=== PATIENT | male | born 1980 | race Caucasian/White ===

== ENCOUNTER 2016-10-30 13:29 | Inpatient (IN) | payer OTHER ==
[2016-10-30 14:22] LABS: HEMOGLOBIN 18.1 gm/dl (14.0-17.5); RED BLOOD COUNT 5.95 M/UL (4.20-5.50); WHITE BLOOD COUNT 11.9 K/UL (4.5-11.0)
[2016-10-31 06:47] LABS: HEMOGLOBIN 16.9 gm/dl (14.0-17.5); RED BLOOD COUNT 5.56 M/UL (4.20-5.50); WHITE BLOOD COUNT 9.3 K/UL (4.5-11.0)
[2016-10-31 07:59] LABS: BUN/CREATININE RATIO 19 (0-10)
[2016-11-01 06:33] LABS: BUN/CREATININE RATIO 13 (0-10)
[2016-11-02 05:41] LABS: HEMOGLOBIN 14.8 gm/dl (14.0-17.5); RED BLOOD COUNT 4.91 M/UL (4.20-5.50); WHITE BLOOD COUNT 9.1 K/UL (4.5-11.0)
[2016-11-02 06:00] LABS: BUN/CREATININE RATIO 6 (0-10)
[2016-11-03 05:37] LABS: BUN/CREATININE RATIO 5 (0-10)
[2016-11-04 05:59] LABS: HEMOGLOBIN 14.1 gm/dl (14.0-17.5); RED BLOOD COUNT 4.71 M/UL (4.20-5.50); WHITE BLOOD COUNT 8.3 K/UL (4.5-11.0)
[2016-11-04 06:21] LABS: BUN/CREATININE RATIO 4 (0-10)
[2016-11-05] MEDS ORDERED: LACTINEX PACKET1 PKT PO (14:13)
[2016-11-05] MEDS ORDERED: QUESTRAN PACKET4 GM PO (14:14)
== END 2016-11-05 15:40 | disposition home or self-care (01) | DRG 683 ==
LOC: ER1 13:29 → ZEROF 17:15 → MED SURG 4 17:15 → ZEROF 11-01 10:02 → MED SURG 4 11-01 10:02
PROVIDERS: Emergency Medicine; Hospitalist; Internal Medicine Gastroenterology; Physician Assistant Medical; ADMIT Internal Medicine
PROC: 0DJD8ZZ Inspection of Lower Intestinal Tract, Via Natural or Artificial Opening Endoscopic (ICD-10-PCS; principal; 2016-11-04 17:15)
DX: N17.9 Acute kidney failure, unspecified (principal); E87.2 Acidosis; K52.1 Toxic gastroenteritis and colitis; R19.7 Diarrhea, unspecified; E87.6 Hypokalemia; E66.9 Obesity, unspecified; F17.210 Nicotine dependence, cigarettes, uncomplicated; Z83.3 Family history of diabetes mellitus; Z82.49 Family history of ischemic heart disease and other diseases of the circulatory system; K76.0 Fatty (change of) liver, not elsewhere classified; Z90.49 Acquired absence of other specified parts of digestive tract; Z98.890 Other specified postprocedural states
CPT/HCPCS: 36415; 76705; 80048; 80053; 80074; 80307; 81001; 82150; 82962; 83690; 83735; 84132; 84300; 85025; 85027; 87045; 87046; 87086; 87390; 89055; 96361; 96374; 96375; 99285; G0378; J2250; J2270; J2405; J7030; J7040